=== PATIENT | male | born 1975 | race Caucasian/White ===

== ENCOUNTER 2018-11-02 21:14 | Emergency (ER) | payer OTHER ==
[2018-11-02 21:14] VITALS: BMI 24.0
[2018-11-02 21:29] VITALS: RESP 20
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
[2018-11-02 23:55] VITALS: BP 120/81; PULSE 79; TEMP 97.8
[2018-11-02 23:58] VITALS: O2SAT 97
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
== END 2018-11-03 00:10 | disposition home or self-care (01) ==
LOC: C.ER 21:14
DX: S09.90XA Unspecified injury of head, initial encounter (principal); S13.4XXA Sprain of ligaments of cervical spine, initial encounter; V49.9XXA Car occupant (driver) (passenger) injured in unspecified traffic accident, initial encounter